=== PATIENT | male | born 1990 | race Caucasian/White ===

== ENCOUNTER 2023-12-28 06:23 | Day surgery (SDC) | payer BC, SELFPAY ==
[2023-12-28 08:00] VITALS: BMI 26.1
[2023-12-28 08:05] VITALS: BP 122/80
[2023-12-28 08:14] VITALS: BMI 26.1
[2023-12-28] MEDS: TYLENOL 1000 MG PO (08:23)
[2023-12-28 10:00] VITALS: BP 111/76
[2023-12-28 10:15] VITALS: BP 122/81
[2023-12-28 10:30] VITALS: BP 115/71
[2023-12-28 10:49] VITALS: BP 127/81
== END 2023-12-28 11:04 | disposition home or self-care (01) ==
LOC: SDS 06:23
PROVIDERS: ATTENDING PHYSICIAN Surgery
DX: K60.1 Chronic anal fissure (principal)
CPT/HCPCS: 46200